=== PATIENT | female | born 1940 | race Asian ===

== ENCOUNTER 2021-12-07 21:59 | Observation (INO) | payer MEDICARE, SELFPAY ==
--- NOTE | ~2021-12-07 | CT_ITS ---
EXAMINATION: CTA chest PE abdomen pel DATE: 12/08/2021 00:01 INDICATION: Chest pain. Shortness of breath. TECHNIQUE: Computed tomography angiography (CTA) of the chest was performed with 100 mL Omnipaque-350 intravenous contrast timed to evaluate the pulmonary arteries. Coronal maximum intensity projection 3D-reconstructions were created by the technologist. Computed tomography (CT) of the abdomen and pelv is was performed with intravenous contrast. Automated exposure control and iterative reconstruction t echnique were employed. The dose-length product was 1401.57 mGy-cm. COMPARISON: Chest 2 views 12/07/2021 FINDINGS: CTA chest: The lungs demonstrate mild atelectasis. There is a small right pleural effusion. Cardiomeg jade is noted. No pericardial effusion. The central pulmonary arteries are enlarged, consistent with p ulmonary arterial hypertension. There are acute pulmonary emboli in the lower lobes and right upper l obe. There is an intrathoracic goiter. The brachiocephalic vessels are tortuous. There is mild thorac ic spondylosis. CT abdomen and pelvis: The liver is normal. There are changes of cholecystectomy. The spleen, pancrea s, and adrenal glands are normal. There are cysts in the kidneys measuring up to 1.9 cm on the left. There is a 3 mm stone in left kidney. There are no dilated loops of bowel. The appendix is not visual ized. There are no pathologically enlarged lymph nodes. There is no free intraperitoneal fluid. There is mild lumbar spondylosis. IMPRESSION: 1. Acute pulmonary emboli in the lower lobes and right upper lobe. I called this result to Dr. Aleksandr sarabia 2. Small right pleural effusion. Reviewed, dictated and finalized at location A. IMPRESSION: 1. Acute pulmonary emboli in the lower lobes and right upper lobe. I called thi s result to Dr. Winter. 2. Small right pleural effusion.
--- NOTE | ~2021-12-07 | XR_ITS ---
EXAMINATION: XR chest 2V DATE: 12/07/2021 23:33 INDICATION: Chest pain. TECHNIQUE: Frontal and lateral views of the chest were obtained. COMPARISON: None. FINDINGS: There is a diffuse interstitial pattern. There are mild airspace opacities in the mid and l ower lung zones. No pleural effusion or pneumothorax. Cardiomegaly is noted. There is widening of the superior mediastinum. IMPRESSION: 1. Diffuse lung disease, likely mild pulmonary edema and atelectasis. Pneumonia cannot be excluded. 2. Cardiomegaly. 3. Widening of the superior mediastinum, which may be tortuous brachiocephalic vessels or lymphadenop athy. Chest CT is recommended. Reviewed, dictated and finalized at location A. IMPRESSION: 1. Diffuse lung disease, likely mild pulmonary edema and atelectasis. Pneumonia cannot be excluded. 2. Cardiomegaly. 3. Widening of the superior mediastinum, which may be tortuous brachiocephalic vessels or lymphadenopathy. Chest CT is recommended.
[2021-12-07 21:59] VITALS: BP 211/91; PULSE 97; RESP 24; TEMP 37.1; O2SAT 96; O2SAT 97
[2021-12-07 22:10] VITALS: PULSE 98
--- NOTE | 2021-12-07 22:11 | ECG_ITS ---
Measurements Intervals [place] Rate: 96 P: 46 [place]: 165 QRS: 2 QRSD: 86 T: 39 QT: 337 QTc: 427 Interpretive Statements SINUS RHYTHM BASELINE ARTIFACT NONSPECIFIC ST ABNORMALITY BORDERLINE ECG NO PREVIOUS ECG AVAILABLE FOR COMPARISON Electronically Signed On 12-08-2021 15:36:56 CDT by Josué Bauer M.D.
--- NOTE | 2021-12-07 22:13 | ED.CHESTPAIN ---
HPI - Chest Pain General Chief Complaint: Chest Pain Stated Complaint: sob, r chest pain Time Seen by Provider: 12/07/21 22:13 Source: patient, family and sign language interpreter (granddaugher at bedside) Mode of arrival: ambulatory Limitations: no limitations History of Present Illness HPI narrative: Patient is an 81-year-old female with a history of anemia, acid reflux presenting to the emergency department for evaluation of right-sided chest pain over the past 36 hours. Patient reports onset of right-sided chest pain yesterday. Pain is in the right lower chest, right upper abdomen. Chest pain is sharp and worse with deep inspiration or movement. She denies any radiation to the back. She denies upper chest pain, jaw pain, neck pain. Patient does report some shortness of breath without cough or hemoptysis. Denies lower extremity edema or swelling. Denies recent fall or injury. Patient lives in [place] but is visiting family in [place], thus they decided come to the hospital this evening because they thought she was having difficulty with breathing. Patient denies fever, chills, cough, rhinorrhea. She denies known history of Covid. Patient denies history of coagulopathy. She denies leg swelling or calf pain. No recent surgery or immobility. No recent long car or air travel. Related Data Home Medications Medication Instructions Recorded Confirmed ferrous sulfate 12/08/21 12/08/21 omeprazole 12/08/21 Allergies Allergy/AdvReac Type Severity Reaction Status Date / Time No Known Allergies Allergy Verified 12/07/21 22:11 Review of Systems Review of Systems: CONSTITUTIONAL: Denies fever, chills, or sweats. EYES: Denies visual changes, redness, or discharge. ENT: Denies rhinorrhea, congestion, sore throat, or otalgia. CARDIOVASCULAR: Reports chest pain without palpitations RESPIRATORY: Denies cough, reports shortness of breath GASTROINTESTINAL: Reports right upper quadrant abdominal pain without nausea, vomiting or diarrhea GENITOURINARY: Denies dysuria or hematuria. SKIN: Denies rash or itching. MUSCULOSKELETAL: Denies back pain, joint pain, or myalgia. NEUROLOGIC: Denies headache, numbness, or weakness. [facility] Social History Social History (Updated 12/07/21 @ 22:33 by Zoey Winter MD) Smoking status: Never smoker Alcohol intake: never Substance use: never Gender identity (if verbalized by the patient): Female Exam Narrative: GENERAL: Awake, alert, conversant HEAD: Normocephalic, atraumatic. EYES: PERRLA and EOMI. ENT: Nares clear, no rhinorrhea or epistaxis. Mucous membranes moist. NECK: Supple. CHEST: No respiratory distress, mild tachypnea, lungs are clear without wheezing, rhonchi, rales, positive right lower chest wall tenderness about T10 midaxillary line HEART: Tachycardic rate, sinus rhythm ABDOMEN:Non distended, non tender, tender in the right upper quadrant without rebound, rigidity, guarding, no epigastric tenderness EXTREMITIES: Normal range of motion. No edema. SKIN: Warm, dry, no rash. NEURO:No focal deficits. Alert and oriented x3 Course Vital Signs Vital signs: Vital Signs Temperature 37.1 C 12/07/21 21:59 Pulse Rate 97 12/07/21 21:59 Respiratory Rate 24 H 12/07/21 21:59 Blood Pressure 211/91 H 12/07/21 21:59 Pulse Oximetry 97 12/07/21 21:59 Temperature 37.1 C 12/07/21 21:59 Pulse Rate 89 12/08/21 00:19 Respiratory Rate 19 12/08/21 00:19 Blood Pressure 164/56 H 12/08/21 00:19 Pulse Oximetry 95 12/08/21 00:19 MDM - Chest Pain MDM Narrative Medical decision making narrative: Patient presented to the emergency department for evaluation of right-sided chest pain, shortness of breath. At the time of assessment patient is tachypneic, tachycardic, quite hypertensive. Her pain is slightly reproducible on exam. She does have pleuritic pain. She is not hypoxic. Lung sounds are clear bilaterally. No wheezing. Patient without history of COPD, obst
[2021-12-07] MEDS: ASPIRIN 81 MG CHEWABLE TABLET 324 MG PO (22:15)
[2021-12-07 22:33] LABS: Hemoglobin 8.7 g/dL (12.0-15.0); Mean Corpuscular HGB Conc 31.1 g/dl (32-36); Mean Corpuscular Hemoglobin 28.5 pg (26-34); Mean Corpuscular Volume 91.8 fl (80-100); Mean Platelet Volume 9.2 fl (7.4-10.4); Platelet Count Result 243 k/mm3 (150-375); Red Blood Count 3.05 M/mm3 (4.2-5.4); White Blood Count 14.7 K/mm3 (4.5-10.0)
[2021-12-07 22:43] LABS: Prothrombin Time 12.9 Seconds (11.1-14.7)
[2021-12-07] MEDS: SODIUM CHLORIDE 0.9% IV 1,000 ML 999 ML IV CONT (22:43)
[2021-12-07] MEDS: ONDANSETRON INJ 4 MG/2 ML VIAL IV PUSH (22:43)
[2021-12-07 22:44] LABS: Partial Thromboplastin Time 28.1 SECONDS (22.3-36.8)
[2021-12-07] MEDS: MORPHINE SULFATE (*CRX) 4 MG/ML INJ IV PUSH (22:44)
[2021-12-07 22:52] LABS: Alanine Aminotransferase 11 U/L (4-35); Albumin Level 4.5 g/dL (3.5-5.1); Alkaline Phosphatase 89 U/L (38-126); Anion Gap 11 mmol/L (8-16); Aspartate Amino Transferase 37 U/L (14-36); Blood Urea Nitrogen 27 mg/dL (7-17); Calcium 8.9 mg/dL (8.4-10.2); Carbon Dioxide 24 mmol/L (22-30); Chloride 102 mmol/L (98-107); Estimated CRCL calculation 25 ml/min; Estimated Glomerular Filt Rate 36; Glucose 146 mg/dL (65-110); Lipase 160 U/L (23-300); Lipase 166 U/L (23-300); Potassium 4.5 mmol/L (3.4-5.0); Sodium 137 mmol/L (137-145)
[2021-12-07 22:54] LABS: D Dimer 3.67 ug/mL (<0.48)
[2021-12-07 23:01] LABS: NT Pro B Type Natriuretic Pept 724 pg/mL (5-100)
[2021-12-07 23:04] LABS: Troponin I < 0.012 ng/mL (0.000-0.034)
[2021-12-07 23:09] LABS: Appearance Urine Clear (Clear); Bilirubin Urine Negative (Negative); Color Urine Yellow (Yellow); Glucose Urine UA Negative (Negative); Ketones Urine Negative (Negative); Leukocyte Esterase Ur Negative LEU/UL (Negative); Nitrate Urine Negative (Negative); Protein Urine 1+ mg/dL (Negative); Urobilinogen Urine 0.2 mg/dL (<2.0)
[2021-12-07 23:10] LABS: Add Urine Microscopic? YES; Blood Urine Trace (Negative)
[2021-12-07 23:11] LABS: Lactic Acid Reflex 1.2 mmol/L (0.7-2.1)
[2021-12-07 23:13] LABS: RBC Urine 0-2 /hpf (0-2); WBC Urine 0-3 /hpf
[2021-12-07 23:16] VITALS: BP 159/67; PULSE 79; RESP 24; O2SAT 90
--- NOTE | 2021-12-07 23:25 | PC.NURSE ---
Pt to imaging at this time.
[2021-12-08] VITALS (15 sets, daily range): BP systolic 135–164; BP diastolic 48–64; PULSE 62–93; RESP 14–25; TEMP 36.3–36.9; O2SAT 76–100
--- NOTE | 2021-12-08 | ECHO_ITS ---
Patient Info Name: Dione Dick Age: 81 years : 1940 Gender: Female Ht: 65 in Wt: 153 lbs BSA: 1.80 m2 HR: 72 bpm BP: 152 / 62 mmHg Technical Quality: Fair Exam Date: 12/08/2021 10:54 AM Exam Location: [facility] Patient Status: Inpatient Admit Date: 12/08/2021 Staff Ordering Physician: Gini Morales DO Chairman Ceo: Jennifer Gold RDCS Attending Provider: Gini Morales DO Referring Physician: Andrew SMITH; Exam Type: CA echo doppler color flow Study Info Indications - PULMONARY EMBOLISM Complete two-dimensional, color flow and Doppler transthoracic echocardiogram is performed. Summary 1. Complete two-dimensional, color flow and Doppler transthoracic echocardiogram is performed. 2. Left ventricular systolic function is hyperdynamic, estimated at 65-70%. 3. There is mildly increased left ventricular wall thickness. 4. The left ventricular diastolic function is grade I diastolic dysfunction. 5. There is mild aortic valve sclerosis. 6. There is mild aortic valve regurgitation. 7. There is trace mitral valve regurgitation. 8. There is mild mitral valve calcification. 9. There is mild tricuspid valve regurgitation. 10. Moderate pulmonary hypertension, estimated pulmonary arterial systolic pressure is 48 mmHg. 11. There is mild pulmonic regurgitation. Left Ventricle Left ventricular chamber dimension is normal. Left ventricular systolic function is hyperdynamic, estimated at 65-70%. There is mildly increased left ventricular wall thickness. Left ventricular septal wall motion is normal. The left ventricular diastolic function is grade I diastolic dysfunction. Right Ventricle Right ventricular chamber dimension is normal. Right ventricular systolic function is normal. Left Atria Left atrial chamber dimension is normal. Right Atria Right atrial chamber dimension is normal. Atrial Septum Intact interatrial septum visualized by color flow imaging. Aortic Valve The aortic valve is trileaflet. There is mild aortic valve sclerosis. There is no aortic valve stenosis. There is mild aortic valve regurgitation. Pulmonic Valve The pulmonic valve is normal. There is no pulmonic valve stenosis. There is mild pulmonic regurgitation. Mitral Valve The mitral valve has normal leaflets. There is no mitral valve stenosis. There is trace mitral valve regurgitation. There is mild mitral valve calcification. Tricuspid Valve The tricuspid valve leaflets are normal. There is no significant tricuspid valve stenosis. There is mild tricuspid valve regurgitation. Moderate pulmonary hypertension, estimated pulmonary arterial systolic pressure is 48 mmHg. Pericardium/Pleural The pericardium appears normal. There is no pericardial effusion. Inferior Vena Cava Normal inferior vena cava with >50% collapse upon inspiration consistent with Empty right atrial pressure, 5 mmHg. Aorta The aortic root size at the sinus of Valsalva is normal. The prox ascending aorta size is normal. Left Ventricular Outflow Tract Name Value Normal LVOT 2D LVOT Diameter 2.0 cm LVOT Doppler
[2021-12-08] MEDS: ENOXAPARIN 80 MG/0.8 ML SYRINGE 65 MG SUB-Q (00:24)
[2021-12-08 00:59] LABS: SARS-CoV-2 RNA PCR Negative
[2021-12-08 02:03] LABS: Troponin I < 0.012 ng/mL (0.000-0.034)
--- NOTE | 2021-12-08 02:13 | ADMGEN ---
This patient, Dione Dick, was admitted to 2 Medical Room 242-. Patient/family oriented to hospital policies and general routines including ID bracelet, bed and alarms, visiting hours, pain management, procedures, bathroom and other care routines, personal items, smoking policy, room service/diet, and visiting hours. Information on how to activate the Rapid Response Team has been discussed. Patient/Family are encouraged to report perceived risks to care and to ask questions if they do not understand what they are told or what they should do.
--- NOTE | 2021-12-08 02:40 | PC.NURSE ---
PT PRIMARY LANGUAGE IS [facility] IN ROOM TRANSLATING FOR ADMISSION. [employer] DOES NOT HAVE SPECIFIC PT DIALECT.
[2021-12-08] MEDS: ACETAMINOPHEN 325 MG TABLET 650 MG PO ×5 (04:15→22:33)
--- NOTE | 2021-12-08 04:35 | PM.IMHP ---
H&P: HPI History of Present Illness Date/Time: 12/08/21 04:35 Chief Complaint: Right side chest pain Narrative: 8 81-year-old Croatian female with past medical hypertension, GERD and kidney stones who presented to the ER via private vehicle from a family [place] home due to intermittent right-sided chest pain and shortness of breath. History was obtained through translation from a family member. [employer] bus driver supervisor service does not have a bus driver supervisor speaking the patient's specific dialect. Patient had onset of right-sided chest pain approximately 36 hours ago. Pain is in the right lower chest and right upper abdomen. Pain is worse with inspiration and movement. Pain does not radiate. The patient is visiting family but she lives in [place]. Patient denies any recent ill contacts. She has not had any cough or congestion. She denies fevers or chills. She has no known exposure to COVID. She does not have a history of blood clots and does not have any leg pain or swelling. Any prolonged travel or periods of immobility.She does report that she was having some right medial upper thigh pain for about a week but that pain stopped a couple of days ago. She tried placing multiple topical pain relief patch is but these did not relieve her pain. Her pain did radiate through to the back of her ribcage on the right. she reports chronic urinary urgency but denies any dysuria or hematuria. She has not had any hematochezia or melena. She has a history of chronic anemia and takes iron supplements at home. While still in the ER the patient got up to go to the bedside commode. While going to the bedside commode patient's oxygen saturation did drop to 76% on room air. The patient also became increasingly tachypneic and tachycardic with this drop. She was placed on 2 L nasal cannula with oxygen saturations improving to 96% Review of Systems Review of Systems: 12 systems were reviewed with pertinent positives and negatives per HPI. Except as documented in the HPI, all other systems were reviewed and are negative. [facility] Past Medical History Medical History (Updated 12/08/21 @ 04:55 by Gini Morales DO) Acid reflux Anemia Chronic kidney disease, stage 3 Nephrolithiasis Surgical History Surgical History (Updated 12/08/21 @ 04:41 by Gini Morales DO) H/O lithotripsy Family History Family History Other Unknown family medical history Social History Social History (Updated 12/08/21 @ 08:01 by Gini Morales DO) Social History: The patient usually lives with her daughter and son-in-law in [place] but is currently in [place] visiting other family members for this month. She speak a dialect of Croatian that the bus driver supervisor service does not provide. subsequently, family member stay with the patient when she is hospitalized. She has 6 living children. She ambulates without assistance. Smoking status: Never smoker Alcohol intake: never Substance use: never Gender identity (if verbalized by the patient): Female Spiritual care concerns: No Meds Home Medications and Allergies Home Medications Medication Instructions Recorded Confirmed Type ferrous sulfate 65 mg PO DAILY 12/08/21 12/08/21 History omeprazole 20 mg PO DAILY 12/08/21 12/08/21 History Allergies Allergy/AdvReac Type Severity Reaction Status Date / Time No Known Allergies Allergy Verified 12/07/21 22:11 Vital Signs Vital Signs - 24 hr 12/07/21 21:59 12/07/21 22:10 12/07/21 23:16 Temperature 98.8 F Pulse Rate 97 98 79 Respiratory Rate 24 H 24 H Blood Pressure 211/91 H 159/67 H Pulse Oximetry 96 90 12/08/21 00:19 12/08/21 00:57 12/08/21 01:01 Temperature Pulse Rate 89 85 Respiratory Rate 19 25 H Blood Pressure 164/56 H 157/64 H Pulse Oximetry 95 96 100 12/08/21 01:31 12/08/21 02:18 12/08/21 02:30 Temperature Pulse Rate 84 93 84 Respi
[2021-12-08 04:57] LABS: Troponin I < 0.012 ng/mL (0.000-0.034)
[2021-12-08 05:31] LABS: Hematocrit 25.4 % (37.0-47.0); Hemoglobin 7.6 g/dL (12.0-15.0); Mean Corpuscular HGB Conc 29.9 g/dl (32-36); Mean Corpuscular Hemoglobin 27.9 pg (26-34); Mean Corpuscular Volume 93.4 fl (80-100); Platelet Count Result 242 k/mm3 (150-375); Red Blood Count 2.72 M/mm3 (4.2-5.4); White Blood Count 13.3 K/mm3 (4.5-10.0)
[2021-12-08 05:41] LABS: Iron 21 ug/dL (37-170)
[2021-12-08 05:49] LABS: Transferrin 130 mg/dL (206-381)
[2021-12-08 05:52] LABS: Percent Iron Saturation 11 % (20-50)
[2021-12-08 06:19] LABS: Anion Gap 6 mmol/L (8-16); Blood Urea Nitrogen 23 mg/dL (7-17); Calcium 8.2 mg/dL (8.4-10.2); Carbon Dioxide 24 mmol/L (22-30); Chloride 108 mmol/L (98-107); Estimated CRCL calculation 29 ml/min; Estimated Glomerular Filt Rate 43; Glucose 121 mg/dL (65-110); Potassium 4.5 mmol/L (3.4-5.0); Sodium 138 mmol/L (137-145)
[2021-12-08 06:39] LABS: Folic Acid > 20.0 ng/mL (2.76->20)
[2021-12-08] MEDS: PANTOPRAZOLE 40 MG TABLET PO (08:45)
[2021-12-08] MEDS: FERROUS SULFATE 324 MG TABLET BY MOUTH (08:45)
--- NOTE | 2021-12-08 09:13 | PM.IMPN ---
Progress Note: A&P Assessment and Plan (1) Pulmonary embolism: Qualifiers: Pulmonary embolism type: multiple subsegmental (without acute cor pulmonale) Qualified Code(s): I26.94 - Multiple subsegmental pulmonary emboli without acute cor pulmonale Code(s): I26.99 - Other pulmonary embolism without acute cor pulmonale Status: Acute Assessment and Plan: Monitor vital signs, I&Os, neuro status, patient is a fall risk and patient is a bleeding risk Monitor anticoagulation therapy Therapeutic Lovenox, 1mg/kg transition to Eliquis on 12/18/2021 Obtain echocardiogram (2) Anemia: Qualifiers: Anemia type: unspecified type Qualified Code(s): D64.9 - Anemia, unspecified Code(s): D64.9 - Anemia, unspecified Status: Acute Assessment and Plan: Iron deficiency anemia: Continue iron supplement Monitor Serum electrolytes, and cbc (3) Hypoxia: Code(s): R09.02 - Hypoxemia Status: Acute Assessment and Plan: Monitor Oxygen saturation, Oxygen via NC; wean oxygen as tolerated, keep SpO2 greater than 91% Patient has difficulty taking a deep breath. She is unable to complete a full sentence without dyspnea. Perform a home oxygen evaluation on December 09, 2021 (4) Leukocytosis: Code(s): D72.829 - Elevated white blood cell count, unspecified Status: Acute Assessment and Plan: No acute signs of active infection. Holding off on IV antibiotics (5) Chronic kidney disease, stage 3: Code(s): N18.30 - Chronic kidney disease, stage 3 unspecified Status: Inactive Assessment and Plan: Continue monitoring renal function (6) Hyperglycemia: Code(s): R73.9 - Hyperglycemia, unspecified Status: Acute Assessment and Plan: Obtain a HgbA1c (7) Pain on movement of skeletal muscle: Code(s): M79.10 - Myalgia, unspecified site Status: Acute Assessment and Plan: Apply a lidocaine patch to the right posterior shoulder Subjective Date/time seen: 12/08/21 09:13 Patient is unable to appropriately communicate with nursing staff and clinicians. Patient speaks Mandarin and has a different dialect in the rail car driver. Daughter at bedside was able to translate healthcare information. Patient continues to endorse shortness of breath and pain to the right posterior shoulder. A lidocaine patch was ordered to place of the right shoulder. Renal function is at the patient's baseline. Complaining of pleuritic pain to the right lower lobe, added oral pain management. No acute events reported by RN during the night. Patient denies any significant chest pain, shortness a breath, nausea, vomiting upset stomach or diarrhea. Of note patient has had elevated blood glucose levels during this hospitalization. No prior history of diabetes mellitus, will obtain hemoglobin A1c. Review of Systems Review of Systems: All systems reviewed & are unremarkable except as noted in HPI and below Exam Narrative: PHYSICAL EXAM: WEIGHT 69.5 kg BMI 25.2 General: No acute distress, well-developed well-nourished HEENT: upper and lower dentures in place, mucous membranes are moist, no scleral icterus, pupils are equal and reactive, positive conjunctival pallor, nasal cannula in place Respiratory: cleared a auscultation bilaterally, splinting with deep breaths , mild tachypnea Cardiovascular: regular rate, regular rhythm Gastrointestinal: soft, nontender, nondistended, positive bowel sounds Skin: no jaundice, positive pallor Musculoskeletal: no clubbing, cyanosis or edema Neurological: alert and oriented, speech is clear, no facial asymmetry Psychiatric: appropriate mood and affect, pleasant and cooperative : Deferred Hematologic/lymphatic: no anterior cervical lymphadenopathy, no petechiae, no bruising Objective Data Vital Signs Vital Signs: Vital Signs - 24 hr 12/07/21 21:59 12/07/21 22:10 12/07/21 23:16 Temperature 98.
[2021-12-08] MEDS: IBUPROFEN 600 MG TABLET PO (11:48)
[2021-12-08] MEDS: ENOXAPARIN 60 MG/0.6 ML SYRINGE 55 MG SUB-Q ×2 (11:49→23:46)
--- NOTE | 2021-12-08 12:13 | PC.NURSE ---
Billing Rep reviewed and agrees with student nurse assessment.
[2021-12-09] VITALS (10 sets, daily range): BP systolic 157–167; BP diastolic 65; PULSE 55–99; RESP 20–22; TEMP 36.8–37.1; O2SAT 87–100
[2021-12-09] MEDS: ACETAMINOPHEN 325 MG TABLET 650 MG PO ×3 (03:10→14:45)
[2021-12-09 07:34] LABS: Basophils Percent Auto 0.2 % (0.2-1.2); Eosinophils Absolute Auto 0.1 K/mm3 (0-0.3); Eosinophils Percent Auto 1.2 % (0-4.4); Hematocrit 23.5 % (37.0-47.0); Hemoglobin 7.2 g/dL (12.0-15.0); Immature Granulocyte Absolute 0.06 K/mm3 (0.00-0.031); Immature Granulocyte Percent A 0.5 % (0-0.5); Lymphocytes Absolute Auto 1.69 K/mm3 (0.9-3.2); Lymphocytes Percent Auto 13.9 % (18.3-44.2); Mean Corpuscular HGB Conc 30.6 g/dl (32-36); Mean Corpuscular Hemoglobin 28.2 pg (26-34); Mean Corpuscular Volume 92.2 fl (80-100); Mean Platelet Volume 9.7 fl (7.4-10.4); Monocytes Absolute Auto 0.9 K/mm3 (0.1-0.6); Monocytes Percent Auto 7.1 % (2.6-8.5); Neutrophils Absolute Auto 9.4 K/mm3 (1.3-6.7); Neutrophils Percent Auto 77.1 % (45.5-73.1); Platelet Count Result 202 k/mm3 (150-375); Red Blood Count 2.55 M/mm3 (4.2-5.4); Red Cell Distribution Width 13.6 % (11.5-14.5); White Blood Count 12.2 K/mm3 (4.5-10.0)
[2021-12-09 07:44] LABS: Alanine Aminotransferase 14 U/L (4-35); Albumin Level 3.3 g/dL (3.5-5.1); Alkaline Phosphatase 51 U/L (38-126); Anion Gap 6 mmol/L (8-16); Aspartate Amino Transferase 18 U/L (14-36); Bilirubin,Total 0.8 mg/dL (0.2-1.3); Blood Urea Nitrogen 17 mg/dL (7-17); Calcium 8.2 mg/dL (8.4-10.2); Carbon Dioxide 24 mmol/L (22-30); Chloride 107 mmol/L (98-107); Estimated CRCL calculation 26 ml/min; Estimated Glomerular Filt Rate 39; Glucose 106 mg/dL (65-110); Magnesium 1.9 mg/dL (1.6-2.3); Potassium 4.2 mmol/L (3.4-5.0); Sodium 137 mmol/L (137-145)
[2021-12-09] MEDS: APIXABAN 5 MG TABLET 10 MG PO (08:23)
[2021-12-09] MEDS: LIDOCAINE 5% PATCH 1 PATCH TRANSDERM (08:23)
[2021-12-09] MEDS: PANTOPRAZOLE 40 MG TABLET PO (08:23)
[2021-12-09] MEDS: FERROUS SULFATE 324 MG TABLET BY MOUTH (08:23)
--- NOTE | 2021-12-09 11:42 | HOMEO2EVAL ---
Evaluation was performed at [facility] Home Oxygen Evaluation RC: Home Oxygen (O2) Evaluation Start: 12/09/21 07:03 Freq: ONCE Status: Active Protocol: RPE Activity Type Activity Date Activity User E-Sign Co-Sign Detail Recorded Client Recorded Date Recorded By Document 12/09/21 11:00 [email or web address] [email or web address] 12/09/21 11:42 DJO Document 12/09/21 11:03 [email or web address] [email or web address] 12/09/21 11:42 DJO Document 12/09/21 11:05 [email or web address] [email or web address] 12/09/21 11:42 DJO Document 12/09/21 11:15 [email or web address] [email or web address] 12/09/21 11:42 DJO 12/09/21 12/09/21 12/09/21 11:00 11:03 11:05 Home O2 Evaluation Test Phase Resting Resting Exercise Oxygen Delivery Room Air Nasal Cannula Nasal Cannula Oxygen Flow Rate (L/min) 1 1 Pulse Oximetry (90-100 %) 87 L 93 91 Pulse Rate (60-100 beats/min) 86 99 Ambulation Distance (feet) 200 Ambulation Distance (meters) 60.95 Home Oxygen Evaluation Comments PT REQUIRES 1 L AT REST AND WITH ACTIVITY Treatment Charges O2 Evaluation - Inpatient 12/09/21 11:15 Home O2 Evaluation Test Phase Resting Oxygen Delivery Nasal Cannula Oxygen Flow Rate (L/min) Pulse Oximetry (90-100 %) 94 Pulse Rate (60-100 beats/min) 82 Ambulation Distance (feet) Ambulation Distance (meters) Home Oxygen Evaluation Comments Treatment Charges
--- NOTE | 2021-12-09 13:14 | PM.DS ---
DS: Admitting Diagnosis Discharge Date 12/09/2021 Admitting Diagnosis Pulmonary embolism Acute hypoxic respiratory failure requiring supplemental oxygen Anemia DS: Discharge Diagnosis Discharge Diagnosis (1) Pulmonary embolism: Qualifiers: Pulmonary embolism type: multiple subsegmental (without acute cor pulmonale) Qualified Code(s): I26.94 - Multiple subsegmental pulmonary emboli without acute cor pulmonale Code(s): I26.99 - Other pulmonary embolism without acute cor pulmonale Status: Acute Assessment and Plan: Monitor vital signs, I&Os, neuro status, patient is a fall risk and patient is a bleeding risk Monitor anticoagulation therapy Therapeutic Lovenox, 1mg/kg transition to Eliquis on 12/18/2021 echocardiogram revealed an LVEF of 65-70% with grade 1 diastolic dysfunction (2) Anemia: Qualifiers: Anemia type: unspecified type Qualified Code(s): D64.9 - Anemia, unspecified Code(s): D64.9 - Anemia, unspecified Status: Acute Assessment and Plan: Iron deficiency anemia: Continue iron supplement Monitor Serum electrolytes, and cbc (3) Hypoxia: Code(s): R09.02 - Hypoxemia Status: Acute Assessment and Plan: Monitor Oxygen saturation, Oxygen via NC; wean oxygen as tolerated, keep SpO2 greater than 91% Patient has difficulty taking a deep breath. She is unable to complete a full sentence without dyspnea. Perform a home oxygen evaluation on December 09, 2021, patient required 1 L of oxygen with ambulation (4) Leukocytosis: Code(s): D72.829 - Elevated white blood cell count, unspecified Status: Acute Assessment and Plan: No acute signs of active infection. Holding off on IV antibiotics (5) Chronic kidney disease, stage 3: Code(s): N18.30 - Chronic kidney disease, stage 3 unspecified Status: Inactive Assessment and Plan: Continue monitoring renal function (6) Hyperglycemia: Code(s): R73.9 - Hyperglycemia, unspecified Status: Acute Assessment and Plan: Obtain a HgbA1c (7) Pain on movement of skeletal muscle: Code(s): M79.10 - Myalgia, unspecified site Status: Acute Assessment and Plan: Apply a lidocaine patch to the right posterior shoulder DS: Summary Hospital Course Reason for hospitalization: Acute hypoxic respiratory failure Pulmonary embolism Hospital Course: 81-year-old Bruneian female with past medical hypertension, GERD and kidney stones who presented to the ER via private vehicle from a family [place] home due to intermittent right-sided chest pain and shortness of breath. History was obtained through translation from a family member. [employer] developer analyst service does not have a developer analyst speaking the patient's specific dialect. Patient had onset of right-sided chest pain approximately 36 hours ago. Pain is in the right lower chest and right upper abdomen. Pain is worse with inspiration and movement. Pain does not radiate. The patient is visiting family but she lives in [place]. Patient denies any recent ill contacts. She has not had any cough or congestion. She denies fevers or chills. She has no known exposure to COVID. She does not have a history of blood clots and does not have any leg pain or swelling. Any prolonged travel or periods of immobility.She does report that she was having some right medial upper thigh pain for about a week but that pain stopped a couple of days ago. She tried placing multiple topical pain relief patch is but these did not relieve her pain. Her pain did radiate through to the back of her ribcage on the right. she reports chronic urinary urgency but denies any dysuria or hematuria. She has not had any hematochezia or melena. She has a history of chronic anemia and takes iron supplements at home. While still in the ER the patient got up to go to the bedside commode. While going to the bedside commode patient's oxyg
== END 2021-12-09 16:01 | disposition home or self-care (01) ==
LOC: ANHED 12-08 00:57 → ANH2MED 12-08 10:42
PROVIDERS: Admitting Provider Internal Medicine; Emergency Provider Emergency Medicine; Visit Provider Nurse Practitioner Family
DX: I26.99 Other pulmonary embolism without acute cor pulmonale (principal); N18.30 Chronic kidney disease, stage 3 unspecified; D64.9 Anemia, unspecified; D72.829 Elevated white blood cell count, unspecified; K21.9 Gastro-esophageal reflux disease without esophagitis; M79.10 Myalgia, unspecified site; R09.02 Hypoxemia; R73.9 Hyperglycemia, unspecified; Z20.822 Contact with and (suspected) exposure to COVID-19; Z87.442 Personal history of urinary calculi
CPT/HCPCS: 36415; 71046; 71275; 74177; 80048; 80053; 81001; 82607; 82728; 82746; 83540; 83550; 83605; 83690; 83735; 83880; 84443; 84466; 84484; 85025; 85027; 85380; 85610; 85730; 87040; 93005; 93306; 94618; 96361; 96372; 96374; 96375; 99285; A9270; C9803; G0378; J1650; J2270; J2405; J7030; Q9967; U0003; U0005